=== PATIENT | female | born 1985 | race Caucasian/White ===

== ENCOUNTER 2019-07-07 14:14 | Outpatient (CLI) | payer OTHER ==
[~2019-07-07] VITALS: Ht 162.6 cm; Wt 74.5 kg
[~2019-07-07 14:14] MED LIST: FAMO-79; IBUP-1222 PO; ONDA4TAB7; OXYC-302 PO; PREN-3; RANI300C
[2019-07-07] MEDS ORDERED: TERBUTALINE 1 MG/ML, 1ML ONE (14:34)
[2019-07-07 14:55] VITALS: BP 109/72
[2019-07-07] MEDS ORDERED: TERBUTALINE 1 MG/ML, 1ML SQ ONE (15:00)
[2019-07-07 15:06] LABS: MICROSCOPIC NOT IND
[2019-07-07 15:27] LABS: AMPHETAMINE SCREEN, URINE Negative (Negative); BARBITURATE SCREEN, URINE Negative (Negative); BENZODIAZEPINE SCREEN, URINE Negative (Negative); CANNABINOID SCREEN, URINE Negative (Negative); COCAINE SCREEN, URINE Negative (Negative); METHADONE SCREEN, URINE Negative (Negative); OPIATE SCREEN, URINE Positive (Negative)
[2019-07-07] MEDS ORDERED: ACETAMINOPHEN 325 MG TABLET ONE (16:23)
[2019-07-07] MEDS ORDERED: ACETAMINOPHEN 325 MG TABLET PO PRN (16:30)
[2019-07-07] MEDS ORDERED: PREN1TAB60 PO (16:31)
[2019-07-07] MEDS ORDERED: HYDR4TAB48 PO (16:32)
[2019-07-07] MEDS ORDERED: BUPR1PAT7 SC (16:34)
== END 2019-07-07 18:10 | disposition home or self-care (01) ==
LOC: LDOP 14:14
PROVIDERS: ATTEND Obstetrics & Gynecology
DX: R10.31 Right lower quadrant pain (principal); K21.9 Gastro-esophageal reflux disease without esophagitis
CPT/HCPCS: 59025; 76817; 80307; 81003; 87086; 96372; 99201; J3105; G0463

== ENCOUNTER 2019-10-09 05:59 | Outpatient (CLI) | payer SELFPAY ==
[~2019-10-09] VITALS: Ht 162.6 cm; Wt 78.3 kg
[~2019-10-09 05:59] MED LIST changes: +BUPR1PAT7 SC; +HYDR4TAB48 PO; +PREN1TAB60 PO
[2019-10-09 06:10] VITALS: BP 119/84
== END 2019-10-09 08:03 | disposition home or self-care (01) ==
LOC: LDOP 05:59
PROVIDERS: ATTEND Obstetrics & Gynecology
DX: O62.9 Abnormality of forces of labor, unspecified (principal); Z3A.37 37 weeks gestation of pregnancy
CPT/HCPCS: 59025

== ENCOUNTER 2019-10-10 12:53 | Outpatient (CLI) | payer OTHER ==
[~2019-10-10] VITALS: Ht 162.6 cm; Wt 79.0 kg
== END 2019-10-10 13:44 | disposition home or self-care (01) ==
LOC: LDOP 12:53
PROVIDERS: ATTEND Obstetrics & Gynecology
DX: O26.893 Other specified pregnancy related conditions, third trimester (principal); R19.8 Other specified symptoms and signs involving the digestive system and abdomen; Z3A.40 40 weeks gestation of pregnancy
CPT/HCPCS: 59025

== ENCOUNTER 2019-10-16 18:25 | Inpatient (IN) | payer OTHER ==
[~2019-10-16] VITALS: Ht 162.6 cm; Wt 78.2 kg
[2019-10-16 18:29] VITALS: BP 115/80
[2019-10-16] MEDS ORDERED: OXYTOCIN 30U/ 0.9% NaCL 500ML 500 ML IV ONE (19:17)
[2019-10-16] MEDS ORDERED: TERBUTALINE 1 MG/ML, 1ML SQ PRN (19:30)
[2019-10-16] MEDS ORDERED: TERBUTALINE 1 MG/ML, 1ML IVPush PRN (19:30)
[2019-10-16] MEDS ORDERED: NEWBORN KIT ONE (19:33)
[2019-10-16] MEDS ORDERED: OXYTOCIN 30U/ 0.9% NaCL 500ML 500 ML ONE (19:33)
[2019-10-16] MEDS ORDERED: LACTATED RINGERS 1,000 ML IV SCH ×2 (19:36→20:34)
[2019-10-16] MEDS ORDERED: D5%-LACTATED RINGERS 1,000 ML IV SCH (19:36)
[2019-10-16 19:42] LABS: BASOPHILS # (AUTO) 0.02 x10^3/uL (0-0.1); BASOPHILS % (AUTO) 0 % (0-1); EOSINOPHILS % (AUTO) 1 % (1-7); LYMPHOCYTES # (AUTO) 2.36 x10^3/uL (1-3.4); LYMPHOCYTES % (AUTO) 28 % (22-44); MD NO; MEAN CORPUSCULAR HEMOGLOBIN 32.4 pg (27.0-34.8); MEAN CORPUSCULAR VOLUME 98.1 fL (80-100); MEAN PLATELET VOLUME 9.3 fL (7.4-10.4); MONOCYTES # (AUTO) 0.59 x10^3/uL (0.2-0.8); MONOCYTES % (AUTO) 7 % (2-9); NEUTROPHILS # (AUTO) 5.39 x10^3/uL (1.8-6.8); NEUTROPHILS % (AUTO) 64 % (42-75); PLATELET COUNT 243 x10^3/uL (130-400); RED BLOOD COUNT 3.76 x10^6/uL (3.82-5.3); RED CELL DISTRIBUTION WIDTH 14.3 % (9.6-15.2)
[2019-10-16 19:57] LABS: AMPHETAMINE SCREEN, URINE Negative (Negative); BARBITURATE SCREEN, URINE Negative (Negative); BENZODIAZEPINE SCREEN, URINE Negative (Negative); CANNABINOID SCREEN, URINE Negative (Negative); COCAINE SCREEN, URINE Negative (Negative); METHADONE SCREEN, URINE Negative (Negative); OPIATE SCREEN, URINE Positive (Negative)
[2019-10-16] MEDS ORDERED: ONDANSETRON 2MG/ML, 2ML IVPush PRN ×2 (20:00→21:00)
[2019-10-16] MEDS ORDERED: BUPIVACAINE 0.25% ONE (20:12)
[2019-10-16] MEDS ORDERED: FENTANYL/BUPIV./NS/PF 250 ML EPIDCONT ONE (20:14)
[2019-10-16] MEDS ORDERED: FENTANYL/BUPIV./NS/PF 250 ML EPIDCONT SCH (20:34)
[2019-10-16] MEDS ORDERED: NALOXONE 0.4 MG/ML, 1ML IVPush PRN (21:00)
[2019-10-16] MEDS ORDERED: EPHEDRINE 50 MG/ML, 1ML IVPush PRN (21:00)
[2019-10-16] MEDS ORDERED: LACTATED RINGERS 1,000 ML IVBOLUS PRN (21:00)
[2019-10-16] MEDS ORDERED: DIPHENHYDRAMINE 50 MG/ML, 1ML IVPush PRN (21:00)
[2019-10-16] MEDS ORDERED: OXYTOCIN 30U/ 0.9% NaCL 500ML 500 ML IV PRN (21:20)
[2019-10-16] MEDS ORDERED: CALCIUM CARBONATE 500 MG TAB.CHEW ONE (21:27)
[2019-10-16] MEDS: CALCIUM CARBONATE 500 MG TAB.CHEW PO PRN (21:28)
[2019-10-16] MEDS ORDERED: METOCLOPRAMIDE 5 MG/ML, 2ML ONE (23:14)
[2019-10-16] MEDS ORDERED: SODIUM CITRATE/CITRIC ACID 30 ML UDC ONE (23:14)
[2019-10-17] MEDS: OXYTOCIN 30U/ 0.9% NaCL 500ML 500 ML IV SCH ×2 (07:15→17:30)
[2019-10-17] MEDS ORDERED: ONDANSETRON 2MG/ML, 2ML IV PRN (07:30)
[2019-10-17] MEDS ORDERED: MISOPROSTOL 200 MCG TABLET PR PRN (07:30)
[2019-10-17] MEDS ORDERED: OXYcodone/APAP 5/325MG TABLET PO PRN ×2 (07:30)
[2019-10-17] MEDS ORDERED: METHYLERGONOVINE 0.2 MG/ML IM PRN (07:30)
[2019-10-17] MEDS ORDERED: SIMETHICONE 80 MG CHEW TAB PO PRN (07:30)
[2019-10-17] MEDS ORDERED: OXYTOCIN 30U/ 0.9% NaCL 500ML 500 ML ONE (08:06)
[2019-10-17] MEDS: PRENATAL VIT/IRON/FA 1 EACH TABLET PO SCH (09:00)
[2019-10-17 11:00] VITALS: BP 118/78
[2019-10-17] MEDS: HYDROmorphone 4MG TABLET PO SCH ×2 (12:00→21:00)
[2019-10-17] MEDS ORDERED: HYDROmorphone 2MG TABLET ONE ×2 (12:16→21:19)
[2019-10-17] MEDS: IBUPROFEN 600 MG TABLET PO PRN ×2 (14:59→21:21)
[2019-10-17 15:41] LABS: BASOPHILS # (AUTO) 0.07 x10^3/uL (0-0.1); BASOPHILS % (AUTO) 1 % (0-1); EOSINOPHILS # (AUTO) 0.05 x10^3/uL (0-0.4); EOSINOPHILS % (AUTO) 1 % (1-7); LYMPHOCYTES # (AUTO) 2.23 x10^3/uL (1-3.4); LYMPHOCYTES % (AUTO) 21 % (22-44); MD SCAN; MEAN CORPUSCULAR HEMOGLOBIN 31.9 pg (27.0-34.8); MEAN CORPUSCULAR VOLUME 99.7 fL (80-100); MEAN PLATELET VOLUME 9.2 fL (7.4-10.4); MONOCYTES % (AUTO) 7 % (2-9); NEUTROPHILS % (AUTO) 71 % (42-75); PLATELET COUNT 203 x10^3/uL (130-400); RED CELL DISTRIBUTION WIDTH 13.8 % (9.6-15.2)
[2019-10-17 16:00] VITALS: BP 112/69
[2019-10-17] MEDS: ACETAMINOPHEN 325 MG TABLET PO PRN (19:47)
[2019-10-17 20:00] VITALS: BP 130/85
[2019-10-17] MEDS: CALCIUM CARBONATE 500 MG TAB.CHEW PO PRN (23:46)
[2019-10-18 01:30] VITALS: BP 118/80
[2019-10-18 04:30] VITALS: BP 117/79
[2019-10-18 08:00] VITALS: BP 107/72
[2019-10-18] MEDS: ACETAMINOPHEN 325 MG TABLET PO PRN ×2 (08:31→19:56)
[2019-10-18] MEDS: DOCUSATE 100 MG CAPSULE PO PRN ×2 (08:31→19:56)
[2019-10-18] MEDS: PRENATAL VIT/IRON/FA 1 EACH TABLET PO SCH (08:31)
[2019-10-18] MEDS: IBUPROFEN 600 MG TABLET PO PRN ×2 (08:31→19:56)
[2019-10-18] MEDS ORDERED: HYDROmorphone 2MG TABLET ONE ×3 (12:57→21:01)
[2019-10-18] MEDS: HYDROmorphone 4MG TABLET PO SCH ×2 (13:35→21:00)
[2019-10-18 16:00] VITALS: BP 120/70
[2019-10-18 19:45] VITALS: BP 115/76
[2019-10-19] MEDS: ACETAMINOPHEN 325 MG TABLET PO PRN ×2 (04:31→09:27)
[2019-10-19] MEDS: IBUPROFEN 600 MG TABLET PO PRN ×2 (04:31→12:17)
[2019-10-19 08:15] VITALS: BP 115/77
[2019-10-19] MEDS: PRENATAL VIT/IRON/FA 1 EACH TABLET PO SCH (09:24)
[2019-10-19] MEDS: DOCUSATE 100 MG CAPSULE PO PRN (09:24)
[2019-10-19] MEDS: HYDROmorphone 4MG TABLET PO SCH (12:00)
[2019-10-19] MEDS ORDERED: HYDROmorphone 2MG TABLET ONE (12:10)
== END 2019-10-19 18:30 | disposition home or self-care (01) | DRG 807 ==
LOC: LDOP 18:25 → LDIP 19:24 → 2NW 10-17 10:49
PROVIDERS: ADMIT Obstetrics & Gynecology; ATTEND Obstetrics & Gynecology
PROC: 10E0XZZ Delivery of Products of Conception, External Approach (ICD-10-PCS; principal; 2019-10-17)
PROC: 3E0R3BZ Introduction of Anesthetic Agent into Spinal Canal, Percutaneous Approach (ICD-10-PCS; 2019-10-17)
PROC: 00HU33Z Insertion of Infusion Device into Spinal Canal, Percutaneous Approach (ICD-10-PCS; 2019-10-17)
PROC: 10907ZC Drainage of Amniotic Fluid, Therapeutic from Products of Conception, Via Natural or Artificial Opening (ICD-10-PCS; 2019-10-17)
PROC: 0HQ9XZZ Repair Perineum Skin, External Approach (ICD-10-PCS; 2019-10-17)
DX: O69.81X0 Labor and delivery complicated by cord around neck, without compression, not applicable or unspecified (principal); Z37.0 Single live birth; O75.89 Other specified complications of labor and delivery; Z3A.38 38 weeks gestation of pregnancy; G89.29 Other chronic pain; O99.02 Anemia complicating childbirth; D64.9 Anemia, unspecified; M25.519 Pain in unspecified shoulder; O70.0 First degree perineal laceration during delivery
CPT/HCPCS: 36415; J7121; 80307; 85025; 86592; 86850; 86900; G0378; J2590; J7120